=== PATIENT | female | born 1935 | race Caucasian/White ===

== ENCOUNTER → 2021-06-27 | Outpatient (CLI) | payer MEDICARE, OTHER ==
--- NOTE | 2021-06-27 14:35 | RAD ---
EXAMINATION: US DPLX VENOUS EXTREMITY UPPER LT (UPPER EXTREMITY VENOUS ULTRASOUND) CLINICAL HISTORY: Left upper extremity pain TECHNIQUE: Sonographic grayscale images obtained of the left upper extremity deep venous system with color flow Doppler, compression, and augmentation techniques as indicated. Images obtained and store d in a permanent archive. COMPARISON: None FINDINGS: No evidence of absent flow or incompressibility within the internal jugular, subclavian, axillary, an d brachial veins. Visualized radial and ulnar veins appear patent on limited evaluation. No evidence of absent flow or incompressibility within the superficial basilic and cephalic veins. IMPRESSION: No evidence of left upper extremity DVT. Electronically signed by: Mohamud Ludwig DO (06/27/2021 2:32 PM) BAR
== END ==
LOC: US 13:28
PROVIDERS: ATTEND Family Medicine
DX: M79.602 Pain in left arm (principal)
CPT/HCPCS: 93971